=== PATIENT | female | born 1940 | race Caucasian/White ===

== ENCOUNTER 2020-04-22 21:40 | Emergency (ER) | payer OTHER ==
[~2020-04-22] VITALS: Ht 149.9 cm; Wt 59.5 kg
[~2020-04-22 21:40] MED LIST: ANTI-GAS 8080 MG PO; ANTIVERT12.5 MG PO; CIPRO500 MG PO; CYMBALTA30 M1 PO; CYMBALTA60 M1 PO; ECO81 PO; FLA500 PO; FLUOXETINE10 M2 PO; KLOR-CON M2020 MEQ PO; KLOR-CON20 MEQ PO; LAC PO; LISINOPRIL-HYDR1 TA2 PO; LISINOPRIL/HCTZ1 TA2 PO; NOR10T PO; PRILOSEC20 MG PO; PROBIOTIC FORMU1 CA2 PO; PROZ20 PO; PROZAC40 MG PO; SIMVASTATIN10 M1 PO; SODIUM CHLORIDE1 G1 GT; TOPROL XL25 MG PO; ZES20 PO
[2020-04-22 22:10] VITALS: Ht 149.9 cm; Wt 59.5 kg
[2020-04-23 00:53] LABS: BASOPHIL % 0.6 % (0-2); PLATELET COUNT 321 x10^3mcL (130-400); RED CELL DISTRIBUTION WIDTH 12.3 % (11.5-14.5)
[2020-04-23 01:16] LABS: CALCIUM 9.9 mg/dL (8.5-10.1); CARBON DIOXIDE 22.5 mmol/L (21-32); CHLORIDE SERUM 102 mmol/L (98-107); CREATININE SERUM 0.9 mg/dL (0.6-1.0); GLUCOSE SERUM 94 mg/dL (74-106); POTASSIUM SERUM 4.6 mmol/L (3.5-5.1); SODIUM SERUM 136 mmol/L (136-145)
[2020-04-23 01:23] LABS: ALBUMIN 3.7 g/dL (3.4-5.0); ALKALINE PHOSPHATASE 77 U/L (46-116); ALT/SGPT 25 U/L (14-59); AST/SGOT 19 U/L (15-37); BILIRUBIN TOTAL 0.7 mg/dL (0.20-1.00); TOTAL PROTEIN, SERUM 7.3 g/dL (6.4-8.2)
[2020-04-23 02:16] VITALS: BP 161/92
== END 2020-04-23 02:16 | disposition home or self-care (01) ==
LOC: ED 21:40
PROVIDERS: Emergency Medicine
DX: M10.9 Gout, unspecified (principal); I10 Essential (primary) hypertension; Z20.828 Contact with and (suspected) exposure to other viral communicable diseases; Z88.8 Allergy status to other drugs, medicaments and biological substances
CPT/HCPCS: 83880; U0003